=== PATIENT | male | born 1950 | race African-American/Black ===

== ENCOUNTER 2022-04-22 15:12 | Emergency (ER) | payer MEDICARE, MEDICAID ==
[~2022-04-22] VITALS: Ht 175.3 cm; Wt 82.0 kg
[2022-04-22 18:35] LABS: EOSINOPHILS % 0.4 % (0.0-5.0); HEMATOCRIT. 39.4 % (42.0-52.0); HEMOGLOBIN. 13.2 g/dL (14.0-18.0); LYMPHOCYTES % 17.6 % (20.0-50.0); MEAN CORPUSCULAR HEMOGLOBIN 32.1 pg (28.0-32.0); MEAN PLATELET VOLUME 8.6 fl (7.4-10.4); MONOCYTES % 9.3 % (2.0-8.0); NEUTROPHILS % 71.7 % (40.0-76.0); PLATELET 235 x1000/uL (130-400); RED BLOOD CELL COUNT 4.11 mill/uL (4.7-6.1); RED CELL DISTRIBUTION WIDTH 14.7 % (11.6-14.6)
[2022-04-22 18:40] LABS: CHLORIDE 94 mEq/L (98-107)
[2022-04-22 20:03] VITALS: BP 114/64
== END 2022-04-22 20:32 | disposition home or self-care (01) ==
LOC: ER 15:12
DX: R00.0 Tachycardia, unspecified (principal); R00.2 Palpitations; E11.22 Type 2 diabetes mellitus with diabetic chronic kidney disease; I12.0 Hypertensive chronic kidney disease with stage 5 chronic kidney disease or end stage renal disease; N18.6 End stage renal disease; Z99.2 Dependence on renal dialysis
CPT/HCPCS: 36415; 71045; 80053; 84484; 85025; 93005; 99285

== ENCOUNTER 2025-02-25 11:43 | Inpatient (IN) | payer MEDICARE, MEDICAID ==
[~2025-02-25] VITALS: Ht 175.3 cm; Wt 55.3 kg
[2025-02-25 11:48] VITALS: O2SAT 98
[2025-02-25] MEDS: LACTATED RINGERS 500 ML IV SCH (12:17)
[2025-02-25 12:22] LABS: BASOPHILS % 0.3 % (0.0-2.0); EOSINOPHILS % 0.1 % (0.0-5.0); HEMATOCRIT. 43.4 % (42.0-52.0); HEMOGLOBIN. 13.9 g/dL (14.0-18.0); LYMPHOCYTES % 28.3 % (20.0-50.0); MEAN PLATELET VOLUME 10.0 fl (7.4-10.4); MONOCYTES % 11.7 % (2.0-8.0); NEUTROPHILS % 59.6 % (40.0-76.0); PLATELET 136 x1000/uL (130-400); RED BLOOD CELL COUNT 4.49 mill/uL (4.7-6.1); RED CELL DISTRIBUTION WIDTH 16.6 % (11.6-14.6)
[2025-02-25] MEDS: VANCOMYCIN 1.5GM/250ML 250 ML IV STA (12:43)
[2025-02-25] MEDS ORDERED: CEFEPIME 2GM IN DEXT 5% 100ML IV ONE (12:45)
[2025-02-25] MEDS: CEFEPIME 2GM/100ML 100 ML IV SCH (13:24)
[2025-02-25 13:25] LABS: UREA NITROGEN BLOOD 35 mg/dL (9-23)
[2025-02-25 13:29] LABS: CREATININE 5.1 mg/dL (0.6-1.3); TROPONIN I HIGH SENSITIVITY 100 ng/L (3.0-53)
[2025-02-25] MEDS ORDERED: ONDANSETRON HCL 4MG/2ML INJ IV PRN (16:00)
[2025-02-25 18:00] VITALS: BP 90/44; PULSE 84; RESP 16; TEMP 36.5848
[2025-02-25 19:07] LABS: PLATELET 123 x1000/uL (130-400); RED BLOOD CELL COUNT 4.52 mill/uL (4.7-6.1); RED CELL DISTRIBUTION WIDTH 16.1 % (11.6-14.6)
[2025-02-25 19:31] LABS: UREA NITROGEN BLOOD 36.0 mg/dL (9-23)
[2025-02-25 20:00] VITALS: BP 115/56; PULSE 116; RESP 19; TEMP 36.1; O2SAT 97
[2025-02-25 20:03] LABS: CREATININE 5.0 mg/dL (0.6-1.3); TROPONIN I HIGH SENSITIVITY 106.0 ng/L (3.0-53)
[2025-02-26] VITALS (10 sets, daily range): BP systolic 97–143; BP diastolic 44–79; PULSE 64–90; RESP 18–20; TEMP 35.8–36.9; O2SAT 96–99
[2025-02-26 16:00] LABS: HEMATOCRIT. 40.0 % (42.0-52.0); HEMOGLOBIN. 13.1 g/dL (14.0-18.0); MEAN PLATELET VOLUME 9.3 fl (7.4-10.4); PLATELET 128 x1000/uL (130-400); RED BLOOD CELL COUNT 4.26 mill/uL (4.7-6.1); RED CELL DISTRIBUTION WIDTH 15.8 % (11.6-14.6)
[2025-02-26 16:11] LABS: UREA NITROGEN BLOOD 41 mg/dL (9-23)
[2025-02-26 16:13] LABS: PHOSPHORUS 4.3 mg/dL (2.5-4.9)
[2025-02-26 16:19] LABS: CREATININE 5.4 mg/dL (0.6-1.3)
[2025-02-26] MEDS: ACETAMINOPHEN 325MG TABLET PO PRN (17:22)
[2025-02-26 19:53] LABS: LYMPHOCYTES % MANUAL 25.0 % (20.0-50.0); MONOCYTES % MANUAL 14.0 % (2.0-8.0); NEUTROPHILS % MANUAL 61.0 % (45.0-75.0); PLATELET ESTIMATE SLIGHTLY DECREASED
[2025-02-27] VITALS: BP 104/51; PULSE 78; RESP 18; TEMP 36.7; O2SAT 99
[2025-02-27 04:00] VITALS: BP_SYST 107; BP_SYST 113; BP_SYST 137; BP_DIAS 60; BP_DIAS 61; BP_DIAS 65; PULSE 84; RESP 18; TEMP 36.4; O2SAT 99
[2025-02-27 06:53] LABS: HEMATOCRIT. 39.5 % (42.0-52.0); HEMOGLOBIN. 13.2 g/dL (14.0-18.0); MEAN PLATELET VOLUME 9.3 fl (7.4-10.4); PLATELET 128 x1000/uL (130-400); RED BLOOD CELL COUNT 4.38 mill/uL (4.7-6.1); RED CELL DISTRIBUTION WIDTH 15.2 % (11.6-14.6)
[2025-02-27 06:55] LABS: UREA NITROGEN BLOOD 50.0 mg/dL (9-23)
[2025-02-27 07:25] LABS: CREATININE 5.9 mg/dL (0.6-1.3)
[2025-02-27 08:00] VITALS: BP_SYST 102; BP_SYST 111; BP_SYST 133; BP_SYST 142; BP_DIAS 48; BP_DIAS 51; BP_DIAS 64; BP_DIAS 85; PULSE 63; PULSE 82; RESP 16; RESP 18; TEMP 36.6; TEMP 36.7; O2SAT 100; O2SAT 95
[2025-02-27 12:00] VITALS: BP_SYST 109; BP_SYST 121; BP_SYST 133; BP_SYST 99; BP_DIAS 43; BP_DIAS 55; BP_DIAS 58; BP_DIAS 69; PULSE 69; PULSE 82; RESP 16; RESP 19; TEMP 36.4; TEMP 36.6; O2SAT 100
[2025-02-27 16:00] VITALS: BP_SYST 104; BP_SYST 114; BP_SYST 121; BP_SYST 137; BP_DIAS 53; BP_DIAS 64; BP_DIAS 69; PULSE 67; PULSE 79; RESP 16; RESP 20; TEMP 36.6; O2SAT 100
[2025-02-27 16:23] LABS: EOSINOPHILS % MANUAL 1.0 % (0.0-5.0); LYMPHOCYTES % MANUAL 23.0 % (20.0-50.0); MONOCYTES % MANUAL 19.0 % (2.0-8.0); NEUTROPHILS % MANUAL 57.0 % (45.0-75.0); PLATELET ESTIMATE SLIGHTLY DECREASED
[2025-02-27] MEDS: MIDODRINE HCL 5MG TABLET PO SCH (18:25)
[2025-02-27 19:47] LABS: HEPATITIS A AB IGM NEGATIVE (Negative); HEPATITIS B CORE AB IGM NEGATIVE (Negative)
[2025-02-27 20:00] VITALS: BP_SYST 115; BP_SYST 124; BP_SYST 133; BP_DIAS 75; BP_DIAS 78; BP_DIAS 86; PULSE 89; RESP 18; TEMP 36.5; O2SAT 99
[2025-02-27 20:48] LABS: HEPATITIS C AB REACTIVE (Pos) (Negative)
[2025-02-28] VITALS (12 sets, daily range): BP systolic 98–159; BP diastolic 57–87; PULSE 73–102; RESP 16–20; TEMP 36.3–36.7; O2SAT 96–100
[2025-02-28 18:59] LABS: TROPONIN I HIGH SENSITIVITY 81 ng/L (3.0-53)
[2025-03-01] VITALS (9 sets, daily range): BP systolic 135–163; BP diastolic 57–84; PULSE 66–92; RESP 18–20; TEMP 36.4–37.2; O2SAT 95–100
[2025-03-01 06:20] LABS: TRIGLYCERIDE 128 mg/dL (0-150); UREA NITROGEN BLOOD 53 mg/dL (9-23)
[2025-03-01 06:21] LABS: LDL CHOLESTEROL 58 mg/dL (5-100)
[2025-03-01 06:27] LABS: CREATININE 6.5 mg/dL (0.6-1.3); TROPONIN I HIGH SENSITIVITY 105 ng/L (3.0-53)
[2025-03-01 09:23] LABS: BASOPHILS % 0.3 % (0.0-2.0); EOSINOPHILS % 0.1 % (0.0-5.0); HEMATOCRIT. 45.9 % (42.0-52.0); HEMOGLOBIN. 15.3 g/dL (14.0-18.0); LYMPHOCYTES % 13.7 % (20.0-50.0); MEAN PLATELET VOLUME 10.0 fl (7.4-10.4); MONOCYTES % 13.1 % (2.0-8.0); NEUTROPHILS % 72.8 % (40.0-76.0); PLATELET 145 x1000/uL (130-400); RED BLOOD CELL COUNT 4.98 mill/uL (4.7-6.1); RED CELL DISTRIBUTION WIDTH 16.0 % (11.6-14.6)
[2025-03-01] MEDS ORDERED: MIDO5TAB4 MT (12:53)
[2025-03-01] MEDS ORDERED: ATORVASTATIN CALCIUM 40MG TABLET PO SCH (21:00)
[2025-03-02] MEDS ORDERED: ASPIRIN 81MG EC TABLET PO SCH (09:00)
== END 2025-03-01 18:20 | disposition home or self-care (01) | DRG 312 ==
LOC: ER 12:10 → 7WST 12:55 → EDBEDREQ 12:56 → ENRESERV 13:21
PROVIDERS: ADMIT Internal Medicine; ATTEND Internal Medicine
PROC: 5A1D70Z Performance of Urinary Filtration, Intermittent, Less than 6 Hours Per Day (ICD-10-PCS; principal; 2025-02-26)
PROC: 5A1D70Z Performance of Urinary Filtration, Intermittent, Less than 6 Hours Per Day (ICD-10-PCS; 2025-02-28)
DX: I95.3 Hypotension of hemodialysis (principal); N18.6 End stage renal disease; I12.0 Hypertensive chronic kidney disease with stage 5 chronic kidney disease or end stage renal disease; I31.39 Other pericardial effusion (noninflammatory); I95.1 Orthostatic hypotension; G90.89 Other disorders of autonomic nervous system; E03.9 Hypothyroidism, unspecified; E11.22 Type 2 diabetes mellitus with diabetic chronic kidney disease; I45.10 Unspecified right bundle-branch block; J44.9 Chronic obstructive pulmonary disease, unspecified; Z82.49 Family history of ischemic heart disease and other diseases of the circulatory system; Z87.891 Personal history of nicotine dependence; Z99.2 Dependence on renal dialysis; Z79.899 Other long term (current) drug therapy
CPT/HCPCS: 36415; 71045; 80048; 80061; 82962; 83036; 83735; 84100; 84145; 84443; 84484; 85025; 85027; 86705; 86709; 87340; 90935; 93005; 93306; 93880; 99291; A4606; J0692